=== PATIENT | female | born 1970 | race Caucasian/White ===

== ENCOUNTER 2018-08-23 03:31 | Emergency (ER) | payer BC, MEDICAID ==
[~2018-08-23] VITALS: Ht 170.2 cm; Wt 108.9 kg
[2018-08-23 04:07] LABS: Basophils # (auto) 0 uL; Basophils % (auto) 0.5 % (0.0-2.0); Eosinophils # (auto) 0.1 uL; Eosinophils % (auto) 1.2 % (0.0-7.0); Hematocrit 44.3 % (36.0-46.0); Hemoglobin 14.6 g/dL (12.2-16.2); Lymphocytes # (auto) 0.9 uL; Lymphocytes % (auto) 13.1 % (10.0-50.0); Mean Corpuscular Hemoglobin 32.3 pg (28.0-32.0); Mean Corpuscular Hgb Conc. 32.9 g/dL (32.0-36.0); Mean Corpuscular Volume 98.2 fL (80.0-100.0); Monocytes # (auto) 0.3 uL; Monocytes % (auto) 3.9 % (0.0-12.0); Neutrophils # (auto) 5.5 uL; Neutrophils % (auto) 81.3 % (37.0-80.0); Platelet Count (auto) 214 10^3/uL (140-450); Red Cell Distribution Width 13.7 % (11.8-14.3); White Blood Cell 6.7 10^3/uL (4.4-10.8)
[2018-08-23 04:16] LABS: Urine Bacteria FEW /hpf (None Seen); Urine Blood Negative /uL (Negative); Urine Mucus FEW (None Seen); Urine Specific Gravity 1.026 (1.001-1.035); Urine WBC 9 /hpf (0 - 5)
[2018-08-23 04:22] LABS: Albumin 4.1 g/dL (3.4-5.0); Calcium 9.3 mg/dL (8.5-10.1); Potassium 3.7 mmol/L (3.5-5.1)
[2018-08-23 04:24] LABS: BUN/Creatinine Ratio 14.9
[2018-08-23 04:27] LABS: Bilirubin, Total 0.3 mg/dL (0.2-1.0); Total Protein 7.8 g/dL (6.4-8.2)
[2018-08-23] MEDS ORDERED: HYDROcodone-ACET 10/325MG TAB PO ONE (05:00)
[2018-08-23] MEDS ORDERED: ONDANSETRON HCL 4 MG/2 ML VIAL IV ONE (05:30)
[2018-08-23] MEDS ORDERED: MORPHINE SULFATE 4 MG/ML SYR/VIAL IV ONE (05:30)
[2018-08-23] MEDS ORDERED: KETOROLAC TROMETH 30 MG/ML 1ML VIAL IV ONE (06:45)
[2018-08-23 07:17] VITALS: BP 127/77
[2018-08-23] MEDS ORDERED: SODIUM CHLORIDE 0.9% 1,000 ML IV SCH (09:14)
[2018-08-23] MEDS ORDERED: cefTRIAXone 1GM/10ml IVPUSH 10 ML IV ONE (09:15)
[2018-08-23] MEDS ORDERED: traMADol HCL 50 MG TAB PO PRN (09:15)
[2018-08-23] MEDS ORDERED: ONDANSETRON HCL 4 MG/2 ML VIAL IV PRN (09:15)
[2018-08-23] MEDS ORDERED: FAMOTIDINE (10MG/ML) 2ML VL IV SCH (09:15)
[2018-08-23] MEDS ORDERED: LORazepam 0.5 MG TAB PO PRN (09:15)
[2018-08-23] MEDS ORDERED: MORPHINE SULFATE 4 MG/ML SYR/VIAL IV PRN ×2 (09:15)
[2018-08-23] MEDS ORDERED: TEMAZEPAM 15 MG CAP PO PRN (09:15)
[2018-08-23] MEDS ORDERED: NITROGLYCERIN 0.4 MG SL TAB SL PRN (09:15)
[2018-08-23] MEDS ORDERED: metroNIDAZOLE 500MG/100ML 100 ML IV SCH (10:00)
[2018-08-24] MEDS ORDERED: cefTRIAXone 1GM/10ml IVPUSH 10 ML IV SCH (09:00)
== END 2018-08-23 09:16 | disposition left against medical advice (07) ==
LOC: ER 03:31
DX: K80.20 Calculus of gallbladder without cholecystitis without obstruction (principal); Z53.29 Procedure and treatment not carried out because of patient's decision for other reasons
CPT/HCPCS: 36415; 74176; 76705; 80053; 81001; 82150; 83690; 85025; 87086; 96374; 96375; 99285; J1885; J2270; J2405